=== PATIENT | female | born 1960 | race Hispanic/Latino ===

== ENCOUNTER 2017-09-06 12:57 | Observation (INO) | payer BC ==
[~2017-09-06] VITALS: Ht 152.4 cm; Wt 87.1 kg
[~2017-09-06 12:57] MED LIST: LEVEMIR1000 UNITS; LISINOPRIL; NOVOLIN 70/30 INNLT SC; PAROXETINE
--- NOTE | 2017-09-06 12:57 | NUR ---
PT TO ROOM FOR TREATMENT
--- NOTE | 2017-09-06 13:29 | NUR ---
PT AMBULATED TO BATHROOM & BACK WITHOUT INCIDENT. PT HAD A STEADY GAIT. DENIES PAIN. DENIES VISION CHANGES. BREATHING CLEAR, EVEN, & UNLABORED. CARDIAC WNL. PTS HER LEFT SIDE FELT WEAK & NUMB YESTERDAY AND TODAY HER RIGHT SIDE ALSO FEELS WEAK & NUMB. PT STATES SHE HAD HER THYROID REMOVED IN JUL 2017, AREA ON NECK IS PUFFY. USED LANGUAGE LINE #[id number]
[2017-09-06] MEDS ORDERED: HYDROCHLOROT25 MG PO (14:00)
[2017-09-06] MEDS ORDERED: LOSARTAN POT50 MG PO (14:00)
[2017-09-06] MEDS ORDERED: LEVOTHYROXIN125 MC1 PO (14:00)
[2017-09-06] MEDS ORDERED: AMLODIPINE5 MG PO (14:01)
--- NOTE | 2017-09-06 14:14 | NUR ---
PT LAUGHING AND JOKING WITH FAMILY @ BEDSIDE. NO S/S OF DISTRESS AT THIS TIME.
[2017-09-06 14:39] LABS: HEMATOCRIT 41.4 % (37.0-47.0); HEMOGLOBIN 14.4 g/dl (12.0-16.0); IMMATURE GRANULOCYTES 0.4 % (0.0-1.0); MEAN CORPUSCULAR HGB 30.3 pG CALC (26.0-32.0); MEAN CORPUSCULAR HGB CONC 34.8 g/L CALC (32.0-36.0); NEUT# 5.02 thou/uL (2.00-7.15); RED BLOOD COUNT 4.76 mill/uL (4.20-5.60); RED CELL DISTRI WIDTH 12.4 % (11.5-15.5)
[2017-09-06 14:48] LABS: ALKALINE PHOSPHATASE 100 u/l (38-126); ANION GAP 17 (6-22 (CALC)); BILIRUBIN, TOTAL 0.6 mg/dL (0.0-1.4); BUN 13 mg/dL (7-17); BUN/CREATININE RATIO 18 (12-20 (CALC)); CALCIUM 9.1 mg/dL (8.4-10.2); CARBON DIOXIDE 27 mmol/l (22-30); CHLORIDE 102 mmol/l (95-108); CREATININE 0.7 mg/dL (0.5-1.0); GFR > 60 ML/MIN (>=60 (CALC)); GFR FOR AFR.AMER. > 60 ML/MIN (>=60 (CALC)); GLUCOSE 360 mg/dL (65-105); SGOT/AST 25 u/l (14-36); SGPT/ALT 35 u/l (9-52); SODIUM 141 mmol/l (137-146); TOTAL PROTEIN 7.5 g/dL (6.3-8.2)
--- NOTE | 2017-09-06 15:15 | NUR ---
PT SITTING ON SIDE OF BED, 2 VISITORS W/2 CHILDREN @ BEDSIDE. PT SMILING, TALKING. NO S/S OF DISTRESS AT THIS TIME.
[2017-09-06] MEDS ORDERED: LEVEMIR FL100 UNIT/M SC (15:47)
[2017-09-06] MEDS ORDERED: NOVOLIN 70/30 SC ×2 (15:48)
--- NOTE | 2017-09-06 15:48 | NUR ---
PT STATES SHE KNOWS [facility] A DIABETIC. ADDED MEDS TO MED REC. PT WANTS TO STAY THE NIGHT TO WATCH FOR NUMBNESS.
--- NOTE | 2017-09-06 15:53 | NUR ---
CALLED PHARMACY TO REQUEST LEVEMIR
--- NOTE | 2017-09-06 16:41 | NUR ---
DAUGHTER AT BEDSIDE TRANSLATING FOR PT, EXPLAINED POC. INSULIN GIVEN. NO OTHER QUESTIONS OR NEEDS AT THIS TIME.
--- NOTE | 2017-09-06 17:13 | NUR ---
Admission Note Report Given to: ELVER Transported by: X Wheelchair Stretcher Transported with: X Nurse Transporter X [employer] [facility] Recruiting Coordinator PT HELD IN ER UNTIL 1730 PER [facility] REQUEST
--- NOTE | 2017-09-06 17:45 | NUR ---
JAN[facility] ANDA TRANSPORTED PT VIA STRETCHER TO [facility].
[2017-09-06 17:50] VITALS: BP 133/78
--- NOTE | 2017-09-06 17:55 | NUR ---
PT TO ROOM VIA STRETCHER ACCOMPANIED BY STAFF AND SPOUSE; PT YAKUT SPEAKING; TELE MONITOR IN PLACE; PT ORIENTED TO ROOM AND CALL SYSTEM; PT ASSISTED WITH DINNER SET UP; CALL [place] WITHIN REACH; WILL CONTINUE TO MONITOR.
--- NOTE | 2017-09-06 19:30 | NUR ---
PT RESTING AT BEDSIDE WITH FAMILY;PT MALAGASY SPEAKING ONLY,FAMILY WILLING TO TRANSLATE FOR WRITTER;PT REPORTS LEFT SIDED WEAKNESS WITH ONSET OF ONE DAY,SHE STATES THAT PREVIOUS SYMPTOMS OCCURRED IN FEB;ASSESSMENT COMPLETED;PT DENIES ANY PAIN OR DISCOMFORTS AND IS EDUCATED ON PAIN SCALE AND REPORTING;#20G TO RAC FLUSHED AND PATENT;LEFT SIDED WEAKNESS IS NOTED IN SHOE WORKER;RESPIRATIONS EVEN AND UNLABORED ON RA;SKIN INTACT;SAFETY PRECAUTIONS REINFORCED;PT EDUCATED TO CALL FOR ASSISTANCE IF NEEDED;CALL LIGHT IN REACH;WILL CONTINUE TO MONITOR
[2017-09-06 20:00] VITALS: BP 136/82
--- NOTE | 2017-09-06 23:22 | NUR ---
ORDER RECEIVED FROM
[2017-09-07] VITALS: BP 156/87
--- NOTE | 2017-09-07 00:40 | NUR ---
PT RESTING IN SEMI FOWLERS POSITION WATCHING TV;PT DENIES ANY PAIN OR DISCOMFORTS;RESPIRATIONS EVEN AND UNLABORED ON RA;ASSESSMENT UNCHANGED AT THIS TIME;WILL CONTINUE TO MONITOR
--- NOTE | 2017-09-07 05:20 | NUR ---
PT RESTING IN BED WITH SPOUSE AT BEDSIDE;PT VOICES NO COMPLAINTS AT THIS TIME;RESPIRATIONS EVEN AND UNLABORED ON RA;PT DENIES ANY NEEDS;CALL LIGHT IN REACH;WILL CONTINUE TO MONITOR
[2017-09-07 05:56] LABS: HEMATOCRIT 39.4 % (37.0-47.0); HEMOGLOBIN 13.7 g/dl (12.0-16.0); MEAN CELL VOLUME 88.5 fL CALC (80.0-100.0); MEAN CORPUSCULAR HGB 30.8 pG CALC (26.0-32.0); MEAN CORPUSCULAR HGB CONC 34.8 g/L CALC (32.0-36.0); RED BLOOD COUNT 4.45 mill/uL (4.20-5.60); RED CELL DISTRI WIDTH 12.6 % (11.5-15.5)
[2017-09-07 06:23] VITALS: BP 148/84
[2017-09-07 06:28] LABS: ANION GAP 14 (6-22 (CALC)); BUN 14 mg/dL (7-17); BUN/CREATININE RATIO 20 (12-20 (CALC)); CALCIUM 9.1 mg/dL (8.4-10.2); CARBON DIOXIDE 25 mmol/l (22-30); CHLORIDE 104 mmol/l (95-108); CREATININE 0.7 mg/dL (0.5-1.0); GFR > 60 ML/MIN (>=60 (CALC)); GFR FOR AFR.AMER. > 60 ML/MIN (>=60 (CALC)); GLUCOSE 297 mg/dL (65-105); POTASSIUM 4.2 mmol/l (3.5-5.1); SODIUM 139 mmol/l (137-146)
--- NOTE | 2017-09-07 07:20 | NUR ---
PT SITTING ON SIDE OF BED; ASSESSMENT COMPLETED; TELE MONITOR IN PLACE; DENIES PAIN; CALL [place] WITHIN REACH; WILL CONTINUE TO MONITOR.
[2017-09-07 08:02] VITALS: BP 159/92
[2017-09-07 09:24] LABS: CHOLESTEROL HDL RATIO 5.1 (<4.4 (CALC))
--- NOTE | 2017-09-07 10:00 | NUR ---
PT AMBULATORY IN THE ROOM; FAMILY AT BEDSIDE; NO COMPLAINTS VOICED; CALL [place] WITHIN REACH; WILL CONTINUE TO MONITOR.
[2017-09-07] MEDS ORDERED: LIPITOR20 MG PO (12:48)
[2017-09-07] MEDS ORDERED: ASPIRIN ADULT L81 M2 PO (12:56)
--- NOTE | 2017-09-07 14:22 | NUR ---
Discharge instructions given. Patient verbalizes understanding of same. Discharged in stable condition via Wheelchair to Home with family. All belongings sent with pt.
== END 2017-09-07 14:20 | disposition home or self-care (01) | DRG 639 ==
LOC: ED 12:57 → ED-I 15:23 → ED 16:49 → MS2 16:50
PROVIDERS: Emergency Medicine; Nurse Practitioner Family; ADMIT Internal Medicine; ATTEND Internal Medicine
DX: E11.65 Type 2 diabetes mellitus with hyperglycemia (principal); E11.69 Type 2 diabetes mellitus with other specified complication; E11.40 Type 2 diabetes mellitus with diabetic neuropathy, unspecified; I10 Essential (primary) hypertension; E03.9 Hypothyroidism, unspecified; E78.5 Hyperlipidemia, unspecified; E04.2 Nontoxic multinodular goiter; E66.3 Overweight; Z68.37 Body mass index [BMI] 37.0-37.9, adult; Z79.4 Long term (current) use of insulin
CPT/HCPCS: G0378